=== PATIENT | female | born 2000 | race Two or more races ===

== ENCOUNTER 2025-06-06 10:40 | Outpatient (AMB) | payer MEDICAID, SELFPAY ==
[2025-06-06 11:09] VITALS: BP 90/60; PULSE 90; RESP 18; TEMP 36.6; O2SAT 97; BMI 16.5
--- NOTE | 2025-06-06 11:09 | OBCLNT_ITS ---
Vital Signs 06/06/25 11:09 Height 1.57 m Height Method Stated Weight 40.88 kg Weight Measurement Method Standing Scale BMI 16.5 BP 90/60 Blood Pressure Source Automatic Cuff Blood Pressure Location Left Upper Arm Position Sitting Respiration 18 Pulse 90 Pulse Source Monitor Temp 97.9 F Temp Source Oral Pulse Oximetry (%) 97 Oxygen Delivery Method Room Air Allergies/Home Meds Allergies & Medications Allergies No Known Allergies Allergy (Verified 06/06/25 11:23) Medication Reconciliation doxylamine 10 mg-pyridoxine (vit B6) 10 mg tablet,delayed release (Diclegis) 1 tab PO TID #90 tabs 06/06/25 [Rx] Intake Visit Data Collection New Patient or Established: New Patient (never been to [facility]) Reason for Visit:: INITIAL CARE Seen by Clinical Staff ONLY (RN/MA): No Sewer Repairer Required: No Do You Feel Safe at Home: Yes Authorities Contacted: N/A PCP or OBGYN visit in last 3 months: Yes Hx Now: Yes Are you currently on any form of Control: No Last menstrual period: 04/08/25 Pain Present Currently: No Pain Scale Used: Gill-Rios/Numerical Pain scale:: 0 Smoking Status Smoking Status: Never smoker Immunizations Flu Vaccine in the Last 12 Months: Yes Flu Vaccine Exclusion Criteria: Already Received Questionnaires Covid-19 Vaccine Questionnaire Has patient been vacinated for Covid-19 Have you been vacinated for Covid-19: Yes PHQ-9 PHQ-2 Over the last 2 weeks, how often have you been bothered by any of the following problems? 1. Little interest or pleasure in doing things: not at all 2. Feeling down, depressed, or hopeless: not at all Total score: 0 PHQ-9 3. Trouble falling or staying asleep, or sleeping too much: Not at all 4. Feeling tired or having little energy: Not at all 5. Poor appetite or overeating: Not at all 6. Feeling bad about yourself - or that you are a failure or have let yourself or your family down: Not at all 7. Trouble concentrating on things, such as reading the newspaper or watching television: Not at all 8. Moving or speaking so slowly that other people could have noticed? - Or the opposite - being so fidgety or restless that you have been moving around a lot more than usual: not at all 9. Thoughts that you would be better off or of hurting yourself in some way: Not at all Total score: 0 Source: Developed by Drs. Christiano Craven, Kirsten Damico, Gary Gee and colleagues, with an educational hannah from [employer]. Depression screen completed yes Social History Living Situation History Marital Status: Lives With: Family Housing: House Tobacco History Smoking Status: Never smoker Second Hand Smoke Exposure: No Alcohol History Alcohol Intake: Never Domestic Abuse History Do You Feel Safe at Home: Yes OB Initial Visit OB Flowsheet OB Flowsheet Initial Weight: Not Recorded Date -?-?-?-?-?-?-?-?-?-?-?-?- EGA Weight BP Alb Glu CTX Pres Fundal ht FHR Mov Dilation Station Effacement Hx Notes Visit Note 06/06/25 -?-?-?-?-?-?-?-?-?-?-?-?- 8w 3d 40.88 kg 90/60 absent Menstrual History Menstrual reliability: definite Flow: normal Menstrual regularity: regular Monthly: Yes Age at menarche: 15 On control pills at conception: No Associated symptoms (LMP): Reports nausea, vomiting, fatigue and breast tenderness OB History : 3 Para: 2 # of Living Children: 2 Delivery History 1st : Child's name: ARAM date: 11/18/19 sex: female Gestational age at delivery (weeks): 38 Delivery type: vaginal Delivery complications: NONE History of depression before or after : No 2nd : Child's name: PAULETTE date: 06/01/21 sex: male Gestational age at delivery (weeks): 37 Delivery type: vaginal Delivery complications: NONE History of depression before or after : No Infection History & Risk Evaluation History of STDs: none Genetic Screening & History Genetic Screening/Teratology Counseling - Includes patient, baby's father, or anyone in either family with: 1. Patient's age 35 years or older as of estimated date of delivery: No 2. Thalassemia (Irish, Guamanian, Mediterranean, or Background); MCV less than 80: No 3. Neural Tube Defect (Meningomyelocele, Spina Bifida, or Anencephaly): No 4. Congenital Heart Defect: No 5. Down Syndrome: No 6. Dameon-Sachs (Ashkenazi Restorationist, Cajun, [place]an [place]): No 7. Abraham Disease (Ashkenazi Restorationist): No 8. Familial Dysautonomia (Ashkenazi Restorationist): No 9. Sickle Cell Disease or Trait (): No 10. Hemophilia or other blood disorders: No 11. Muscular Dystrophy: No 12. Cystic Fibrosis: No 13. [place]'s Chorea: No 14. Mental Retardation/Autism: No 15. Other inherited genetic or chromosomal disorder: No 16. Maternal Metabolic Disorder (EG,TYPE 1 Diabetes, PKU): No 17. Patient or baby's father had a child with defects not listed above: No 18. Recurrent loss or a stillbirth: No 19. Medications (including supplements, vitamins, herbs or otc drugs)/illicit/recreational drugs/alcohol since last menstrual period: No 20. Any other: No Infection History 1. Live with someone with TB or exposed to TB: No 2. Rash or viral illness since last menstrual period: No 3. Hepatitis B,C: No Other (see comments) Source: [employer] Review of Systems Constitutional Constitutional: Reports fatigue Gastrointestinal Gastrointestinal: Reports nausea and Reports vomiting Endocrine Endocrine: Reports fatigue Office Procedures [facility] Clinic LOC & Office Proc's Nursing/Assessment Patient Status: Initial/New Patient OB Clinic Nursing Assessment: Medication Reconciliation, Update PMH in EMR and Vital Signs OB Clinic Coordination of Care: Complex Care and Chronic Disease 1-5, Consent,records obtained, informed consent, Education Simp Pt/Fam, 1 Ins Authorization, Lab and Imaging orders, Results/Orders obtained and Staff clarify orders Special Needs: Heart tones New Patient Charge New Patient Point Assignment: [id number] New Patient Point Charge: PRODUCT MARKETING DIRECTOR Level 4 ([id number]) Assessment & Plan Diagnosis / Problem List (1) Nausea and vomiting during : Status: Acute (2) : Status: Acute Qualifiers: Weeks of gestation: 8 weeks Qualified Code(s): Z3A.08 - 8 weeks gestation of Plan at 8.3 weeks by LMP of 04/08/2025 and also confirmed by CRL today at bedside and FCA present Patient taking PNV and also reglan for vomiting and will add Diclegis First trimester labs ordered and also NIPT and carrier testing follow up in 4 weeks Additional Plan Follow Up: 4 Weeks
== END 2025-06-06 11:43 | disposition home or self-care (01) ==
LOC: HODSOBC 10:40
PROVIDERS: PCP Nurse Practitioner; Referring Provider Nurse Practitioner; Supervising Provider Obstetrics & Gynecology; Visit Provider Obstetrics & Gynecology
DX: O09.891 Supervision of other high risk pregnancies, first trimester (principal); O21.9 Vomiting of pregnancy, unspecified; Z3A.08 8 weeks gestation of pregnancy
CPT/HCPCS: 99204; G0463

== ENCOUNTER 2025-07-25 09:37 | Outpatient (AMB) | payer MEDICAID, SELFPAY ==
[2025-07-25 09:54] VITALS: BP 92/61; PULSE 105; RESP 18; TEMP 36.2; O2SAT 98; BMI 17.9
--- NOTE | 2025-07-25 09:54 | OBCLNT_ITS ---
Vital Signs 07/25/25 09:54 Height 1.57 m Height Method Stated Weight 44.225 kg Weight Measurement Method Standing Scale BMI 17.9 BP 92/61 Blood Pressure Source Automatic Cuff Blood Pressure Location Left Upper Arm Position Sitting Respiration 18 Pulse 105 H Pulse Source Monitor Temp 97.2 F Temp Source Oral Pulse Oximetry (%) 98 Oxygen Delivery Method Room Air Allergies/Home Meds Allergies & Medications Allergies No Known Allergies Allergy (Verified 06/06/25 11:23) Immunizations Immunizations Flu Vaccine in the Last 12 Months: No Flu Vaccine Exclusion Criteria: Refused by Patient Care OB Visit Log OB Flowsheet Initial Weight: Not Recorded Date -?-?-?-?-?-?-?-?-?-?-?-?- EGA Weight BP Alb Glu CTX Pres Fundal ht FHR Mov Dilation Station Effacement Hx Notes Visit Note 06/06/25 -?-?-?-?-?-?-?-?-?-?-?-?- 8w 3d 40.88 kg 90/60 absent 07/25/25 -?-?-?-?-?-?-?-?-?-?-?-?- 15w 3d 44.225 kg 92/61 absent unknown 16 156 MADDI Calculator Estimated Delivery Date Method Current WG Current Estimate 01/13/26 LMP (Certain) 15w 3d Notes Visit Date: 07/25/25 Last Updated by: Eileen Brown MD at 15.3 weeks / first trimester labs and NIPT ordered last visit / A positive / Rubella immune / HEPB/ HIIV/ RPR Negative hep C / CT and GC negative / Hb at 11.4 and platelets at 170 k XY on genetic screening and NIPT and carrier testing is negative c/o vaginal discharge copious / monique white discharge on speculum exam / no leakage / plan vaginal clotrimazole / order MSAFP/ follow up in 4 weeks / gender reveal envelope given / add reglan Visit Date: 06/06/25 Last Updated by: Eileen Brown MD at 8.3 weeks by LMP of 04/08/2025 and also confirmed by CRL today at bedside and FCA present Patient taking PNV and also reglan for vomiting and will add Diclegis First trimester labs ordered and also NIPT and carrier testing follow up in 4 weeks Office Procedures [facility]BC Clinic LOC & Office Proc's Nursing/Assessment Patient Status: Established Patient OB Clinic Nursing Assessment: Medication Reconciliation, Update PMH in EMR and Vital Signs OB Clinic Coordination of Care: Consent,records obtained, informed consent, Education Simp Pt/Fam, Lab and Imaging orders, Results/Orders obtained and Staff clarify orders Special Needs: Heart tones Established Patient Charge Established Patient Point Assignment: [id number] Established Patient Point Charge: EP Level 3 (80-115) Assessment & Plan Diagnosis / Problem List (1) Nausea and vomiting during : Status: Acute (2) : Status: Acute Qualifiers: Weeks of gestation: 8 weeks Qualified Code(s): Z3A.08 - 8 weeks gestation of
== END 2025-07-25 10:35 | disposition home or self-care (01) ==
LOC: HODSOBC 09:37
PROVIDERS: Supervising Provider Obstetrics & Gynecology; Visit Provider Obstetrics & Gynecology
DX: O09.892 Supervision of other high risk pregnancies, second trimester (principal); O21.9 Vomiting of pregnancy, unspecified; Z3A.15 15 weeks gestation of pregnancy; Z28.21 Immunization not carried out because of patient refusal
CPT/HCPCS: 99213; G0463